=== PATIENT | male | born 1975 | race Caucasian/White ===

== ENCOUNTER 2023-02-12 09:36 | Emergency (ER) | payer MEDICAID ==
[~2023-02-12] VITALS: Ht 185.4 cm; Wt 115.9 kg
[2023-02-12] MEDS ORDERED: HYDROcodone-ACET 10/325MG TAB PO ONE (11:45)
[2023-02-12] MEDS ORDERED: HYDR-4798 PO (12:33)
[2023-02-12 12:47] VITALS: BP 113/82
== END 2023-02-12 12:49 | disposition home or self-care (01) ==
LOC: ER 09:36
DX: S83.91XA Sprain of unspecified site of right knee, initial encounter (principal); M17.11 Unilateral primary osteoarthritis, right knee; M25.461 Effusion, right knee; F17.210 Nicotine dependence, cigarettes, uncomplicated; X50.1XXA Overexertion from prolonged static or awkward postures, initial encounter; Y93.55 Activity, bike riding; Y92.89 Other specified places as the place of occurrence of the external cause; Y99.8 Other external cause status
CPT/HCPCS: 29505; 73562